=== PATIENT | female | born 1990 | race Caucasian/White ===

== ENCOUNTER 2019-02-01 11:55 | Emergency (ER) | payer OTHER ==
[2019-02-01] MEDS ORDERED: SODIUM CHLORIDE 0.9% 1000ML 1,000 ML IVS ONE (12:38)
[2019-02-01] MEDS ORDERED: SODIUM CHLORIDE 0.9% (FLUSH) 10 ML SYG IV PRN (12:38)
[2019-02-01] MEDS ORDERED: MORPHINE SULFATE INJ 10 MG/ML VIAL IV ONE (12:39)
[2019-02-01] MEDS ORDERED: PROMETHAZINE HCL INJ 12.5 MG in SODIUM CHLORIDE 0.9% 50ML 50 ML IVPB ONE (12:39)
--- NOTE | 2019-02-01 12:40 | ED.PDOC ---
History of Present Illness - General Chief Complaint: Back Pain or Injury Stated Complaint: Low back discomfort, headache Time Seen by Provider: 02/01/19 12:37 Source: patient Exam Limitations: no limitations - History of Present Illness Initial Comments: PT PRESENTS WITH COMPLAINT OF BACK PAIN AND NAUSEA THAT BEGAN AFTER MOVING A KRYSTLE SIZE BED AT HOME. PT IS CURRENTLY 20 WEEKS AND REPORTS NO COMPLICATIONS WITH TO DATE. PT DENIES DYSURIA, VAGINAL DISCHARGE, OR VAGINAL BLEEDING. Quality/Severity: severe, dullness Back Pain Location: lumbar spine, paraspinous muscles Back Pain Radiation: other - FLANKS Method of Injury/Prior Injury: other - HEAVY LIFTING Improving Factors: immobilization Worsening Factors: movement Associated Symptoms: denies symptoms Allergies/Adverse Reactions: Allergies NO KNOWN ALLERGY Allergy (Verified 02/01/19 12:18) Home Medications: Ambulatory Orders Acetaminophen W/ Codeine [Tylenol W/ CODEINE #3] 1 ea PO Q4HR PRN #12 02/01/19 Vit W/ Ferrous Fumara [] 1 tab PO DAILY 02/01/19 Promethazine Tab [Phenergan Tablet] 25 mg PO Q6H PRN #15 tab 02/01/19 Review of Systems - Review of Systems Constitutional: Denies: chills, fever EENTM: Denies: blurred vision, double vision Respiratory: Denies: cough, short of breath Cardiology: Denies: chest pain, palpitations Gastrointestinal/Abdominal: States: see HPI, abdominal pain, nausea. Denies: diarrhea, vomiting Genitourinary: Denies: dysuria, frequency Musculoskeletal: States: see HPI, back pain, muscle pain. Denies: joint pain, joint swelling Skin: Denies: dryness, lesions Neurological: States: headache. Denies: numbness, paresthesia Endocrine: States: no symptoms reported Hematologic/Lymphatic: States: no symptoms reported Past Medical History (General) - Patient Medical History Hx Stroke: No Hx Asthma: Yes Hx Diabetes: No Hx MRSA: No - Vaccination History Hx Tetanus, Diphtheria Vaccination: No Hx Influenza Vaccination: No Hx Pneumococcal Vaccination: No - Social History Hx Tobacco Use: No Hx Alcohol Use: No - Female History Patient is a Female of Child Bearing Age (10 -59 yrs old): Yes Patient : No Family Medical History - Family History Mother Living Status: Cause of : [place] Physical Exam - Physical Exam General Appearance: Alert, Obvious distress, Well Developed, Well Groomed, Well Hydrated Eyes, Ears, Nose, Throat Exam: normal ENT inspection Neck Exam: non-tender, full range of motion Cardiovascular/Respiratory: regular rate, rhythm, no M/R/G, normal breath sounds, no respiratory distress Gastrointestinal/Abdominal: soft - WITH GRAVID UTERUS, FUNDUS PALPATED AT THE UMBILICUS. NO UTERINE TENDERNESS, tenderness - B/L UPPER QUADRANT, L>R Back Exam: CVA tenderness (L), vertebral tenderness, other - BILATERAL PARALUMBAR TENDERNESS Extremity Exam: no pedal edema Neurologic: alert, normal mood/affect, oriented x 3 Skin Exam: normal color, warm/dry Progress - Progress Progress: 02/01/19 17:17 PT REPORTS SIGNIFICANT IMPROVEMENT IN BACK PAIN AND NAUSEA AFTER PHENERGAN AND MORPHINE, BUT NOW COMPLAINS OF HEADACHE. PT ABLE TO AMBULATE WITHOUT DIFFICULTY. LABS AND DIAGNOSTICS DISCUSSED. FHT FOUND TO BE 145BPM. WILL ORDER TYLENOL FOR PAIN. - Results/Orders Results/Orders: Laboratory Tests 02/01/19 02/01/19 02/01/19 13:31 16:08 16:24 WBC 12.8 H RBC 4.25 Hgb 11.6 L Hct 35.5 L MCV 83.6 MCH 27.4 MCHC 32.8 L RDW 14.4 Plt Count 179 MPV 8.6 Absolute Neuts (auto) 10.80 H Absolute Lymphs (auto) 1.20 Absolute Monos (auto) 0.80 Absolute Eos (auto) 0.00 Absolute Basos (auto) 0.00 Neutrophils % 84.1 H Lymphocytes % 9.0 L Monocytes % 6.6 Eosinophils % 0.1 L Basophils % 0.2 Sodium 131 L Potassium 4.0 Chloride 104 Carbon Dioxide 18 L Anion Gap 13.0 BUN < 5 L Creatinine 0.40 L BUN/Creatinine Ratio 12.5 Random Glucose 83 Serum Osmolality 259.1 L Calcium 8.4 Total Bilirubin 0.5 Direct Bilirubin < 0.1 Indirect Bilirubin 0.4 AST 17 ALT 12 Alkaline Phosphatase 89 Serum Total Protein 6.5 Albumin 3.2 Urine Color Yellow Urine Appearance Cloudy Urine pH 7.0 Ur Specific [place] 1.020 Urine Protein Negative Urine Glucose (UA) Negative Urine Ketones 15 H Urine Blood Negative Urine Nitrite Negative Urine Bilirubin Negative Urine Urobilinogen 0.2 Ur Leukocyte Esterase Negative Urine RBC 0 Urine WBC 0 Ur Epithelial Cells 0 Urine Bacteria 0 Departure - Departure Clinical Impression: Lumbar strain, Abdominal wall pain in both upper quadrants, Second trimester , Nausea, Dehydration during Time of Disposition: 17:19 Disposition: Discharge to Home or Self Care Condition: Good Departure Forms: ED Discharge - Pt. Copy, Patient Portal Self Enrollment Instructions: DI for Low Back Pain, Dehydration, Adult (DC) Diet: other - INCREASE FLUID INTAKE Referrals: TRISTIAN SNYDER [Primary Care Provider] - 1-5 Days Prescriptions: Acetaminophen W/ Codeine [Tylenol W/ CODEINE #3] 1 ea PO Q4HR PRN #12 PRN Reason: Pain Promethazine Tab [Phenergan Tablet] 25 mg PO Q6H PRN #15 tab PRN Reason: Nausea/Vomiting Home Medications: Ambulatory Orders Acetaminophen W/ Codeine [Tylenol W/ CODEINE #3] 1 ea PO Q4HR PRN #12 02/01/19 Vit W/ Ferrous Fumara [] 1 tab PO DAILY 02/01/19 Promethazine Tab [Phenergan Tablet] 25 mg PO Q6H PRN #15 tab 02/01/19
[2019-02-01] MEDS ORDERED: PROMETHAZINE HCL INJ 25 MG/ML VIAL ONE (13:35)
[2019-02-01] MEDS ORDERED: SODIUM CHLORIDE 0.9% 50ML 50 ML ONE (13:35)
[2019-02-01] MEDS ORDERED: ACETAMINOPHEN 500 MG TAB PO ONE (17:16)
[2019-02-01 17:49] VITALS: TEMP 100.4
[2019-02-01 17:50] VITALS: BP 109/58; O2SAT 96
== END 2019-02-01 17:55 | disposition home or self-care (01) ==
LOC: ER 11:55
DX: O9A.212 Injury, poisoning and certain other consequences of external causes complicating pregnancy, second trimester (principal); S39.012A Strain of muscle, fascia and tendon of lower back, initial encounter; O99.89 Other specified diseases and conditions complicating pregnancy, childbirth and the puerperium; R10.11 Right upper quadrant pain; R10.12 Left upper quadrant pain; R11.0 Nausea; R51 Headache; O99.282 Endocrine, nutritional and metabolic diseases complicating pregnancy, second trimester; E86.0 Dehydration; O99.512 Diseases of the respiratory system complicating pregnancy, second trimester; J45.909 Unspecified asthma, uncomplicated; Z3A.20 20 weeks gestation of pregnancy; X50.0XXA Overexertion from strenuous movement or load, initial encounter; Y92.009 Unspecified place in unspecified non-institutional (private) residence as the place of occurrence of the external cause
CPT/HCPCS: 36415; 80048; 80076; 81001; 85025; A4216; J2270; J2550; J7030

== ENCOUNTER 2019-07-22 23:04 | Emergency (ER) | payer OTHER ==
--- NOTE | 2019-07-22 23:18 | ED.PDOC ---
History of Present Illness - General Chief Complaint: General Stated Complaint: right breast Time Seen by Provider: 07/22/19 23:17 Source: patient - History of Present Illness Initial Comments: 29 yo female who presents with cc of right breast pain. Onset 1 week ago and gradually worsening, much worse today, reports constant moderate pains to right breast which intermittent are throbbing and severe, worse with palpation, reports worsening redness and swelling to right lateral breast and under the nipple. Is her 1 month old baby and reports little to no milk production the past 24 hours. No noted discharge. Denies subjective fevers, chills. Reports also some moderate suprapubic pains and brown vaginal discharge for past 3 days as well. No urinary sx's. No meds tried for relief. Also reports generalized headache. Allergies/Adverse Reactions: Allergies NO KNOWN ALLERGY Allergy (Verified 02/01/19 12:18) Home Medications: Ambulatory Orders Acetaminophen W/ Codeine [Tylenol W/ CODEINE #3] 1 ea PO Q4HR PRN #12 02/01/19 Vit W/ Ferrous Fumara [] 1 tab PO DAILY 02/01/19 Promethazine Tab [Phenergan Tablet] 25 mg PO Q6H PRN #15 tab 02/01/19 Amoxicillin & Pot Clavulanate [Augmentin Tab] 875 mg PO BID 14 Days #28 tab 07/23/19 Nystatin (Topical) [Nystatin] 100,000 unit TOP BID 14 Days #30 gr 07/23/19 Tramadol HCl 50 mg PO Q6H PRN 10 Days #15 tab 07/23/19 Review of Systems - Review of Systems Review of Systems: 07/22/19 23:43 as per HPI All other Systems: Reviewed and Negative Past Medical History (General) - Patient Medical History Hx Stroke: No Hx Asthma: Yes Hx Diabetes: No Hx MRSA: No - Vaccination History Hx Tetanus, Diphtheria Vaccination: No Hx Influenza Vaccination: No Hx Pneumococcal Vaccination: No - Social History Hx Tobacco Use: No Hx Alcohol Use: No - Female History Patient : No Family Medical History - Family History Mother Living Status: Cause of : [place] Physical Exam - Physical Exam General Appearance: Alert, No apparent distress Eye Exam: bilateral normal Ears, Nose, Throat: hearing grossly normal, normal ENT inspection, normal pharynx Neck: non-tender, full range of motion, supple, normal inspection Respiratory: lungs clear, normal breath sounds, no respiratory distress Cardiovascular/Chest: normal peripheral pulses, no edema, no gallop, no murmur, tachycardia, other - right breast with moderate erythema and warmth to lateral aspect and under the nipple, approx 3x3 cm area under nipple of induration and marked ttp, no noted drainage Gastrointestinal/Abdominal: soft, no organomegaly, tenderness - moderate suprapubic Back Exam: normal inspection, no CVA tenderness, no vertebral tenderness Extremity: normal range of motion, non-tender, normal inspection Neurologic: no motor/sensory deficits, alert, normal mood/affect, oriented x 3 Skin Exam: normal color, warm/dry Progress - Progress Progress: 07/22/19 23:45 Right breast pain -on arrival also with temp 102 F and HR 110s, BP 130s/80s, remainder of vitals wnl -concern for possible SIRS/sepsis - question source: possible right breast abscess vs UTI vs ? endometritis vs abscess vs other -obtain CBC, CMP, UA, lactate -place PIV, 1 L NS bolus, Toradol 30 mg IV, morphine 4 mg IV for pain, Zofran 8 mg IV for nausea 07/23/19 00:22 -Labs reveal WBC 13,000 with 89% segs and no bands, lactate 1.7. Remainder of labs pretty unremarkable. Bedside sono of right breast shows hypoechoic focus under right breast concerning for possible abscess vs cellulitis. Will obtain CT chest with IV contrast for further eval. Will also obtain CT A/P with IV contrast to evaluate for possible endometritis vs intraabdominal abscess given her suprapubic pain and brown vaginal discharge. 07/23/19 01:45 CDT -CT Chest reveals edema and stranding of inferior right breast without focal abscess. CT A/P reveals no acute processes. -Pt reports pain much improved, BP remains stable, HR now normal following 1 L NS bolus. -discussed dx of mastitis and trx plan - nystatin cream BID, continued /regular milk expression, OTC analgesics, warm compresses. Will also give Abx - Rocephin 1 g IV here and send with Rx of Augmentin 875 BID x14 days. Tramadol PRN Rx given for pain (#15) - advised no while taking. -dc home in good condition with mother - advised close PCP f/u in 2-3 days time or sooner as needed, return warnings discussed Pnatera Queen MD Billing #[id number] Departure - Departure Clinical Impression: Mastitis Time of Disposition: 01:37 Disposition: Discharge to Home or Self Care Condition: Fair Departure Forms: ED Discharge - Pt. Copy, Patient Portal Self Enrollment Instructions: Mastitis (DC) Referrals: TRISTIAN SNYDER [Primary Care Provider] - 1-5 Days Prescriptions: Amoxicillin & Pot Clavulanate [Augmentin Tab] 875 mg PO BID 14 Days #28 tab Nystatin (Topical) [Nystatin] 100,000 unit TOP BID 14 Days #30 gr Tramadol HCl 50 mg PO Q6H PRN 10 Days #15 tab PRN Reason: Pain Home Medications: Ambulatory Orders Acetaminophen W/ Codeine [Tylenol W/ CODEINE #3] 1 ea PO Q4HR PRN #12 02/01/19 Vit W/ Ferrous Fumara [] 1 tab PO DAILY 02/01/19 Promethazine Tab [Phenergan Tablet] 25 mg PO Q6H PRN #15 tab 02/01/19 Amoxicillin & Pot Clavulanate [Augmentin Tab] 875 mg PO BID 14 Days #28 tab 07/23/19 Nystatin (Topical) [Nystatin] 100,000 unit TOP BID 14 Days #30 gr 07/23/19 Tramadol HCl 50 mg PO Q6H PRN 10 Days #15 tab 07/23/19 Additional Instructions: Continue and/or regular pumping of your breast to help relieve pain and heal quicker. Continue treating oral thrush in your baby and apply the topical antifungal cream to the right breast to treat possible fungal infection there as well. Take the antibiotics as prescribed and finish the full course even if well. Take ibuprofen and/or Tylenol every 4-6 hours to help limit pain & inflammation. You may take the Tramadol as directed for breakthrough pain - do not drive or operate heavy machinery while taking. is not recommended when taking Tramadol either as it can cause potentially harmful side effects to your baby. Follow up with Dr. Snyder in 2-3 days is recommended.
[2019-07-22] MEDS ORDERED: SODIUM CHLORIDE 0.9% 1000ML 1,000 ML IVS ONE (23:31)
[2019-07-22] MEDS ORDERED: SODIUM CHLORIDE 0.9% (FLUSH) 10 ML SYG IV PRN (23:31)
[2019-07-22] MEDS ORDERED: MORPHINE SULFATE INJ 10 MG/ML VIAL IV ONE (23:33)
[2019-07-22] MEDS ORDERED: KETOROLAC TROMETHAMINE INJ 30 MG/ML VIAL IV ONE (23:33)
[2019-07-22] MEDS ORDERED: ONDANSETRON INJ 4 MG/2 ML VIAL IV ONE (23:47)
--- NOTE | 2019-07-23 01:19 | CT ---
EXAM: CT Chest With Intravenous Contrast CLINICAL HISTORY: 29 years old Female; right breast pain, swelling, fevers. TECHNIQUE: Axial computed tomography images of the chest with intravenous contrast. Sagittal and coronal reformatted images were created and reviewed. This CT exam was performed using one or more of the following dose reduction techniques: automated exposure control, adjustment of the mA and/or kV according to patient size, and/or use of iterative reconstruction technique. CONTRAST: 100 mL Optiray 320 IV COMPARISON: No relevant prior studies available. FINDINGS: LUNGS: Mild patchy dependent atelectasis in the lung bases. Lungs otherwise clear. PLEURAL SPACE: No pneumothorax. No significant pleural effusion. HEART: Unremarkable. No cardiomegaly. No significant pericardial effusion. BONES/JOINTS: No acute bony abnormality seen. Mild upper thoracic scoliosis. SOFT TISSUES: Edema and fat stranding in the inferior right breast most consistent with nonspecific mastoiditis/cellulitis. No associated subcutaneous loculated fluid collection to suggest abscess formation seen. VASCULATURE: Suboptimal intravenous contrast bolus for evaluation of possible pulmonary embolism. Accounting for this, no large central pulmonary embolism identified. No thoracic aortic dissection or thoracic aortic aneurysm seen. LYMPH NODES: No pathologic lymphadenopathy identified. IMPRESSION: - Edema and fat stranding in the inferior right breast most consistent with nonspecific mastoiditis/cellulitis. No associated subcutaneous loculated fluid collection to suggest abscess formation seen. Other etiologies including inflammatory breast carcinoma would be less likely. Clinical correlation is suggested, however. Consider further evaluation as is clinically indicated. Thank you for allowing us to participate in the care of this patient. Electronically signed by: Tom Burgos MD 07/23/2019 1:17 AM SAFETY INVESTIGATOR
--- NOTE | 2019-07-23 01:21 | CT ---
EXAM: CT Abdomen and Pelvis With Intravenous Contrast CLINICAL HISTORY: 29 years old Female; pain. TECHNIQUE: Axial computed tomography images of the abdomen and pelvis with intravenous contrast. Sagittal and coronal reformatted images were created and reviewed. This CT exam was performed using one or more of the following dose reduction techniques: automated exposure control, adjustment of the mA and/or kV according to patient size, and/or use of iterative reconstruction technique. CONTRAST: 100 mL COMPARISON: No relevant prior studies available. FINDINGS: LUNG BASES: Mild patchy dependent atelectasis in the lung bases. ABDOMEN: LIVER: Liver normal in size and density without focal abnormality seen. GALLBLADDER AND BILE DUCTS: Normal without CT evidence of acute cholecystitis. PANCREAS: Unremarkable. No mass. No ductal dilation. SPLEEN: No splenomegaly or focal abnormality seen. ADRENALS: Unremarkable. No mass. KIDNEYS AND URETERS: No renal/ureteral stone or hydroureteronephrosis seen bilaterally. No apparent renal mass. STOMACH AND BOWEL: Significant fecal retention and some patchy distal colonic spasm without bowel obstruction. PELVIS: APPENDIX: No CT findings to suggest acute appendicitis. BLADDER: No urinary bladder wall thickening or filling defect seen. REPRODUCTIVE: Uterus is somewhat prominent and heterogeneous in density suggesting fibroid change. Prominent follicles/small cysts in each ovary. ABDOMEN and PELVIS: INTRAPERITONEAL SPACE: No pneumoperitoneum. No free fluid or loculated fluid collection seen. BONES/JOINTS: No acute bony abnormality seen. Small focus of sclerosis in the posterior lateral iliac bone which is of questionable clinical significance. SOFT TISSUES: No acute abnormality seen. VASCULATURE: No acute abnormality seen. LYMPH NODES: No pathologic lymphadenopathy identified. IMPRESSION: - Significant fecal retention and some patchy distal colonic spasm without bowel obstruction. - Possible fibroid uterus. Thank you for allowing us to participate in the care of this patient. Electronically signed by: Tom Burgos MD 07/23/2019 1:20 AM ASSIGNER
[2019-07-23 01:26] VITALS: BP 119/79; TEMP 99.3; O2SAT 94
[2019-07-23] MEDS ORDERED: cefTRIAXone SODIUM 1 GM in SODIUM CHL 0.9% 50ML MIN-BAG+ 50 ML IVPB ONE (01:33)
[2019-07-23] MEDS ORDERED: SODIUM CHL 0.9% 50ML MIN-BAG+ 50 ML IVPB ONE (01:38)
[2019-07-23] MEDS ORDERED: cefTRIAXone SODIUM 1 GM VIAL ONE (01:38)
== END 2019-07-23 01:25 | disposition home or self-care (01) ==
LOC: ER 23:04
DX: N61.0 Mastitis without abscess (principal); R10.30 Lower abdominal pain, unspecified; N89.8 Other specified noninflammatory disorders of vagina; R51 Headache; J45.909 Unspecified asthma, uncomplicated
CPT/HCPCS: 71260; 74177; 80053; 81001; 83605; 85025; 87086; J0696; J1885; J2270; J2405; J7030; J7050

== ENCOUNTER 2019-10-07 19:19 | Emergency (ER) | payer OTHER ==
[2019-10-07] MEDS ORDERED: SODIUM CHLORIDE 0.9% (FLUSH) 10 ML SYG IV PRN (19:28)
--- NOTE | 2019-10-07 19:29 | ED.PDOC ---
History of Present Illness - General Time Seen by Provider: 10/07/19 19:27 Source: patient - History of Present Illness Initial Comments: 29 yo female who presents with cc of RLQ abdominal pain. Onset 2-3 days ago, gradual worsening, much worse since this morning, reports now constant, sharp, "16/07", any movement makes it worse, also worse with coughing/urinating/standing/walking/lying flat, radiates to right lower back and RUQ. Reports also new onset fever with Tmax 99 F at home today and also nausea without emesis and watery diarrhea (x7 episodes today). Reports IUD placement 08/11/19 after of her child. Has had irregular spotting since then. Unsure of LMP. Reports daily vaginal bleeding since 09/12/19. Has been sexually active recently. No hx of abdominal surgeries reported. PCP is Dr. Enio Snyder. Allergies/Adverse Reactions: Allergies NO KNOWN ALLERGY Allergy (Verified 10/07/19 19:44) Home Medications: Ambulatory Orders Tramadol HCl 50 mg PO Q6H PRN 10 Days #15 tab 07/23/19 Ferrous Sulfate [Iron] 130 mg PO DAILY 10/07/19 Sertraline HCl 50 mg PO DAILY 10/07/19 Review of Systems - Review of Systems Review of Systems: 10/07/19 19:48 as per HPI All other Systems: Reviewed and Negative Past Medical History (General) - Patient Medical History Hx Seizures: No Hx Stroke: No Hx Dementia: No Hx Asthma: Yes Hx of COPD: No Hx Cardiac Disorders: No Hx Congestive Heart Failure: No Hx Pacemaker: No Hx Hypertension: No Hx Thyroid Disease: Yes Hx Diabetes: No Hx Gastroesophageal Reflux: No Hx Renal Disease: No Hx Cancer: No Hx of HIV: No Hx Hepatitis C: No Hx MRSA: No - Vaccination History Hx Tetanus, Diphtheria Vaccination: No Hx Influenza Vaccination: No Hx Pneumococcal Vaccination: No - Social History Hx Tobacco Use: No Hx Chewing Tobacco Use: No Hx Alcohol Use: No Hx Substance Use: No Hx Substance Use Treatment: No Hx Depression: Yes - on zoloft Hx Physical Abuse: No Hx Emotional Abuse: No Hx Suspected Abuse: No - Female History Patient : No Family Medical History - Family History Mother Living Status: Cause of : [place] Physical Exam - Physical Exam General Appearance: Alert, No apparent distress Eye Exam: bilateral normal Ears, Nose, Throat: hearing grossly normal, normal ENT inspection, normal pharynx Neck: non-tender, full range of motion, supple, normal inspection Respiratory: lungs clear, normal breath sounds, no respiratory distress, no accessory muscle use Cardiovascular/Chest: normal peripheral pulses, no edema, no murmur, tachycardia Peripheral Pulses: radial,right: 2+, radial,left: 2+ Gastrointestinal/Abdominal: soft, tenderness - marked with guarding to RLQ, suprapubic region, moderate to LLQ/RUQ, +obturator/Rovsing/psoas signs Back Exam: normal inspection, no CVA tenderness, no vertebral tenderness Extremity: normal range of motion, non-tender, normal inspection, no pedal edema Neurologic: jig hand II-XII nml as tested, no motor/sensory deficits, alert, normal mood/affect, oriented x 3 Skin Exam: normal color, warm/dry Progress - Progress Progress: 10/07/19 19:50 RLQ pain -concerning for possible acute abdomen. Consider acute appendicitis vs ectopic vs ovarian torsion vs intraabdominal abscess. With fever & tachycardia, concerning for sepsis. -stat lactate, blood cx's, labs, UA, hcg -place PIV, 1 L NS bolus, morphine 6 mg IV, Zofran 4 mg IV 10/07/19 21:37 -Labs revealed WBC 12,300 with 76% segs and no bands, lactate 1.2. UA with 3-5 WBC, 3-5 RBC, 3+ bacteria, +nitrites - c/w UTI. Urine hcg neg, CMP largely unremarkable. -CT A/P with IV contrast shows no evidence of acute processes. Pt is noted to have normal appearing appendix. She does have an approx 3x3 cm dominant follicle incidentally noted in the Right ovary. Discussed this possibly could be the cause of her pain but given the level of pain and marked TTP that patient had on arrival, I am concerned for possible ovarian torsion. Will need to rule out with stat TVUS, which is unavailable here. Will need to transfer to higher LOC for TVUS & possible urgent/emergent Water Analyst consultation, which is also unavailable here. -Otherwise, pt remains stable. Tachycardia resolved with 2 L NS bolus. BP wnl. Pain moderately improved with morphine 6 mg IV x2 now in ED. -For UTI, will give Rocephin 2 g IV 10/07/19 22:41 -Pelvic exam reveals bloody cervical discharge and marked Right adnexal ttp without masses. No cervical motion tenderness, cervical erythema, or other cervical discharge noted. -Spoke with Dr. Batista at [facility] who accepts for transfer for stat TVUS for f urther evaluation for possible ovarian torsion on the right side. Stable to go via ground EMS. Pantera Queen MD Billing #[id number] 10/07/19 19:28 IV Care:Saline Lock per Protoc QSHIFT Sodium Chloride 0.9% (Flush) [Saline Flush Syringe] 10 ml IV PRN PRN 10/07/19 19:45 BLOOD CULTURE Stat Urine Culture Stat 10/07/19 20:34 Hold Metformin x 48Hrs [id number] 10/07/19 21:37 [id number] SODIUM [Rocephin] 2 gm Sodium Chl 0.9% 100Ml Mini-Bag [NS 100ml MINI-BAG+] 100 ml IVPB ONCE Laboratory Results - last 24 hr 10/07/19 10/07/19 10/07/19 19:45 19:45 19:45 WBC 12.3 H RBC 4.84 Hgb 11.1 L Hct 35.0 L MCV 72.3 L MCH 22.9 L MCHC 31.7 L RDW 18.1 H Plt Count 275 MPV 8.6 Absolute Neuts (auto) 9.40 H Absolute Lymphs (auto) 1.80 Absolute Monos (auto) 0.80 Absolute Eos (auto) 0.20 Absolute Basos (auto) 0.00 Neutrophils % 76.9 Lymphocytes % 14.5 L Monocytes % 6.9 Eosinophils % 1.3 Basophils % 0.4 Sodium 137 Potassium 3.9 Chloride 104 Carbon Dioxide 25 Anion Gap 11.9 L BUN 12 Creatinine 0.72 BUN/Creatinine Ratio 16.7 Random Glucose 101 Serum Osmolality 273.7 L Lactic Acid 1.2 Calcium 9.0 Total Bilirubin 0.6 Direct Bilirubin 0.1 Indirect Bilirubin 0.5 AST 19 ALT 20 Alkaline Phosphatase 113 Serum Total Protein 8.0 Albumin 4.3 Amylase 37 Lipase 36 Urine Color Urine Appearance Urine pH Ur Specific [place] Urine Protein Urine Glucose (UA) Urine Ketones Urine Blood Urine Nitrite Urine Bilirubin Urine Urobilinogen Ur Leukocyte Esterase Urine RBC Urine WBC Ur Epithelial Cells Urine Bacteria Urine HCG, Qual 10/07/19 10/07/19 19:45 19:45 WBC RBC Hgb Hct MCV MCH MCHC RDW Plt Count MPV Absolute Neuts (auto) Absolute Lymphs (auto) Absolute Monos (auto) Absolute Eos (auto) Absolute Basos (auto) Neutrophils % Lymphocytes % Monocytes % Eosinophils % Basophils % Sodium Potassium Chloride Carbon Dioxide Anion Gap BUN Creatinine BUN/Creatinine Ratio Random Glucose Serum Osmolality Lactic Acid Calcium Total Bilirubin Direct Bilirubin Indirect Bilirubin AST ALT Alkaline Phosphatase Serum Total Protein Albumin Amylase Lipase Urine Color Yellow Urine Appearance Cloudy Urine pH 8.5 H Ur Specific [place] 1.020 Urine Protein Negative Urine Glucose (UA) Negative Urine Ketones Negative Urine Blood Moderate H Urine Nitrite Positive H Urine Bilirubin Negative Urine Urobilinogen 1.0 Ur Leukocyte Esterase Negative Urine RBC 3-5 H Urine WBC 3-5 H Ur Epithelial Cells 1-3 Urine Bacteria 3+ H Urine HCG, Qual Negative Departure - Departure Clinical Impression: Right lower quadrant abdominal pain UTI (urinary tract infection) Qualifiers: Urinary tract infection type: acute cystitis Hematuria presence: with hematuria Qualified Code(s): N30.01 - Acute cystitis with hematuria Time of Disposition: 22:45 Disposition: Transfer to Hospital Condition: Fair Referrals: ENIO SNYDER [Primary Care Provider] - 1-2 Weeks Home Medications: Ambulatory Orders Tramadol HCl 50 mg PO Q6H PRN 10 Days #15 tab 07/23/19 Ferrous Sulfate [Iron] 130 mg PO DAILY 10/07/19 Sertraline HCl 50 mg PO DAILY 10/07/19 Transfer to Outside Facility - Transfer Information Decision to Transfer Date: 10/07/19 Decision to Transfer Time: 22:45 Reason for Transfer: stat transvaginal ultrasound unavailable here for evaluation of possible ovarian torsion Accepting Provider:: Dr. Batista Accepting Facility[facility]
[2019-10-07] MEDS ORDERED: ONDANSETRON INJ 4 MG/2 ML VIAL IV ONE (19:44)
[2019-10-07] MEDS ORDERED: MORPHINE SULFATE INJ 10 MG/ML VIAL IV ONE ×3 (19:44→22:43)
[2019-10-07] MEDS ORDERED: SODIUM CHLORIDE 0.9% 1000ML 1,000 ML IVS ONE ×2 (19:44→20:34)
--- NOTE | 2019-10-07 21:28 | CT ---
EXAM: Abdomen/Pelvis w/Contrast CLINICAL INDICATION: Abdominal pain. COMPARISON: There is no previous study for comparison. TECHNIQUE: The CT scan was done using contiguous axial 5 mm postcontrast sections through the abdomen and pelvis including IV contrast. This exam was performed according to our departmental dose-optimization program, which includes automated exposure control, adjustment of the mA and/or kV according to patient size and/or use of iterative reconstruction technique. FINDINGS: The visualized portions of the lung bases are clear except for a tiny 4 mm micronodule in the left lower lobe for which no routine imaging follow-up is recommended. The liver, gallbladder, spleen, kidneys, adrenal glands, and pancreas have an unremarkable CT appearance. The appendix is normal. There is a right ovarian dominant follicle measuring 2.9 x 2.7 cm. An IUD is noted in the uterus. There are no dilated loops of small bowel. There is no free air, free fluid, or abscess. IMPRESSION: No evidence of an acute intra-abdominal process. Electronically signed by: Sawyer Tang MD 10/07/2019 9:26 PM [employer]
[2019-10-07] MEDS ORDERED: cefTRIAXone SODIUM 2 GM in SODIUM CHL 0.9% 100ML MINI-BAG 100 ML IVPB ONE (21:37)
[2019-10-07] MEDS ORDERED: SODIUM CHL 0.9% 100ML MINI-BAG 100 ML IVPB ONE (22:04)
[2019-10-07 22:37] VITALS: TEMP 99
[2019-10-07 22:51] VITALS: BP 105/66; O2SAT 99
== END 2019-10-07 23:11 | disposition short-term general hospital (02) ==
LOC: ER 19:19
DX: N30.01 Acute cystitis with hematuria (principal); R10.31 Right lower quadrant pain; J45.909 Unspecified asthma, uncomplicated; E07.9 Disorder of thyroid, unspecified; F32.9 Major depressive disorder, single episode, unspecified; Z79.899 Other long term (current) drug therapy
CPT/HCPCS: 74177; 80048; 80076; 81001; 81025; 82150; 83605; 83690; 85025; 87040; 87086; 87210; 87491; 87591; J0696; J2270; J2405; J7030; J7050